=== PATIENT | male | born 1950 | race Caucasian/White ===

== ENCOUNTER → 2016-11-07 | Outpatient (CLI) | payer MEDICARE ==
[~2016-11-07] MED LIST: ALBUTEROL0.63 MG/3 INH; ASPIR 8181 MG PO; BRILINTA90 MG PO; LIPITOR TAB 2020 MG PO; LISINOPRIL5 MG PO; LOPRESSOR 25 MG25 MG PO; METOPROLOL TART25 MG PO; NITROSTAT0.4 MG SL; PLAVIX 75 MG TA75 MG PO; PROTONIX40 MG PO; PROVENTIL HFA 61 INH INH; SPIRIVA HANDIH18 MCG INH; SYMBICORT 160-1 INHA INH
== END ==
LOC: CT 08:30 → KOH-I 08:30
DX: R10.9 Unspecified abdominal pain (principal); N20.0 Calculus of kidney
CPT/HCPCS: 74176

== ENCOUNTER → 2016-12-05 | Outpatient (CLI) | payer MEDICARE | LOC: HEART 5 14:30 | DX: J44.9 Chronic obstructive pulmonary disease, unspecified (principal) | CPT/HCPCS: 94060; 94729 ==

== ENCOUNTER → 2016-12-06 | Outpatient (CLI) | payer MEDICARE | LOC: RT 10:20 | DX: Z00.00 Encounter for general adult medical examination without abnormal findings (principal); B39.9 Histoplasmosis, unspecified; G47.34 Idiopathic sleep related nonobstructive alveolar hypoventilation; J45.909 Unspecified asthma, uncomplicated; J98.4 Other disorders of lung; J44.9 Chronic obstructive pulmonary disease, unspecified; Z72.0 Tobacco use | CPT/HCPCS: 36600; 71020; 82803 ==

== ENCOUNTER → 2016-12-17 | Outpatient (CLI) | payer MEDICARE | LOC: CT 09:58 | DX: R91.8 Other nonspecific abnormal finding of lung field (principal) | CPT/HCPCS: 36415; 71250; 82565; 84520 ==